=== PATIENT | female | born 1995 | race Caucasian/White ===

== ENCOUNTER → 2016-11-26 | Outpatient (CLI) | payer BC ==
[~2016-11-26] MED LIST: CLEOCIN150 MG; DICLEGIS DR 101 EACH; KEFLEX250 MG; PRENATAL 1+1)(P1 TAB; TYLENOL EXTRA500 MG
== END | disposition disaster alternative care site (69) ==
LOC: GLAB 07:58
DX: R73.02 Impaired glucose tolerance (oral) (principal)